=== PATIENT | female | born 1950 | race Caucasian/White ===

== ENCOUNTER → 2018-05-05 | Outpatient (CLI) | payer MEDICARE ==
[~2018-05-05] MED LIST: LIDOCAINE-MPF 2%, 2ML ONE
== END | disposition home or self-care (01) ==
LOC: RAD 08:06
PROVIDERS: ATTEND Internal Medicine Hematology & Oncology
DX: Z45.2 Encounter for adjustment and management of vascular access device (principal); C50.919 Malignant neoplasm of unspecified site of unspecified female breast
CPT/HCPCS: 36569; 76937; 77001; C1751; J3490

== ENCOUNTER → 2018-09-22 | Outpatient (CLI) | payer MEDICARE ==
[~2018-09-22] MED LIST changes: +LIDOCAINE-MPF 1%, 5ML ONE; -LIDOCAINE-MPF 2%, 2ML ONE
== END | disposition home or self-care (01) ==
LOC: RAD 07:54
PROVIDERS: ATTEND Internal Medicine Hematology & Oncology
DX: Z45.2 Encounter for adjustment and management of vascular access device (principal); C50.919 Malignant neoplasm of unspecified site of unspecified female breast
CPT/HCPCS: 36573; C1751; 36569; 76937; 77001

== ENCOUNTER 2018-09-29 14:41 | Inpatient (IN) | payer MEDICARE ==
[~2018-09-29] VITALS: Ht 157.5 cm; Wt 52.2 kg
[2018-09-29] MEDS ORDERED: MORPHINE SULFATE 4 MG/ML, 1ML IVPush PRN (15:00)
[2018-09-29] MEDS ORDERED: SODIUM CHLORIDE FLUSH 10ML SYR IVF ONE (15:00)
[2018-09-29] MEDS ORDERED: ONDANSETRON 2MG/ML, 2ML IVPush ONE (15:00)
[2018-09-29 15:23] LABS: BASOPHILS # (AUTO) 0.01 x10^3/uL (0-0.1); BASOPHILS % (AUTO) 0 % (0-1); EOSINOPHILS # (AUTO) 0.01 x10^3/uL (0-0.4); EOSINOPHILS % (AUTO) 0 % (1-7); LYMPHOCYTES # (AUTO) 2.63 x10^3/uL (1-3.4); LYMPHOCYTES % (AUTO) 22 % (22-44); MD NO; MEAN CORPUSCULAR HEMOGLOBIN 33.3 pg (27.0-34.8); MEAN CORPUSCULAR HGB CONC 34.1 g/dL (32.4-35.8); MEAN CORPUSCULAR VOLUME 97.8 fL (80-100); MEAN PLATELET VOLUME 6.7 fL (7.4-10.4); MONOCYTES # (AUTO) 0.04 x10^3/uL (0.2-0.8); MONOCYTES % (AUTO) 0 % (2-9); NEUTROPHILS # (AUTO) 9.39 x10^3/uL (1.8-6.8); NEUTROPHILS % (AUTO) 78 % (42-75); PLATELET COUNT 126 x10^3/uL (130-400); RED BLOOD COUNT 3.95 x10^6/uL (3.82-5.3); RED CELL DISTRIBUTION WIDTH 16.2 % (9.6-15.2)
--- NOTE | 2018-09-29 15:26 | NUR ---
PT SENT FROM PCP D/T ABNORMAL LAB VALUES. RECENT DIAGNOSES OF BREAST CANCER WITH METS. PT DENIES ANY PAIN OR DISCOMFORT AT THIS TIME. PA AT BEDSIDE EVALUATING. REVERSE ISOLATION IMPLEMENTED.
--- NOTE | 2018-09-29 15:32 | NUR ---
MULTIPLE WARM BLANKETS PROVIDED TO PT.
[2018-09-29 15:33] LABS: ALANINE AMINOTRANSFERASE 226 U/L (12-78); ALBUMIN 2.2 g/dL (3.4-5.0); ANION GAP 11 mmol/L (5-15); CALCIUM 6.8 mg/dL (8.5-10.1); CHLORIDE 93 mmol/L (98-107); CREATININE 1.99 mg/dL (0.55-1.02)
[2018-09-29 15:47] LABS: ALKALINE PHOSPHATASE 1253 U/L (45-117); BILIRUBIN,TOTAL 8.3 mg/dL (0.2-1.0)
[2018-09-29] MEDS ORDERED: MORPHINE SULFATE 4 MG/ML, 1ML ONE (15:50)
[2018-09-29] MEDS ORDERED: ONDANSETRON 2MG/ML, 2ML ONE (15:50)
--- NOTE | 2018-09-29 15:55 | NUR ---
RAD to get Xray, RN in room doing dressing change, EKG, US, commode use first
--- NOTE | 2018-09-29 15:56 | NUR ---
US DELAY DUE TO DRESSING CHANGE/X-RAY/LAB
--- NOTE | 2018-09-29 15:57 | NUR ---
LATE ENTRY: PT CVAD DRESSED AND CHANGED PER [facility] PROTOCOL. TOLERATED WELL. DATED AND TIMED.
--- NOTE | 2018-09-29 15:57 | NUR ---
PT MEDICATION PER EMAR.
[2018-09-29] MEDS ORDERED: HYDR-3240 PO (16:00)
[2018-09-29] MEDS ORDERED: MEGE20TA PO (16:00)
[2018-09-29] MEDS ORDERED: SPIR25TA5 PO (16:00)
[2018-09-29 16:19] LABS: O2 FLOW 2.5 L/min
--- NOTE | 2018-09-29 16:45 | NUR ---
US AT BEDSIDE.
[2018-09-29] MEDS ORDERED: CEFTRIAXONE IVPB ONE (17:00)
[2018-09-29] MEDS ORDERED: CEFTRIAXONE PMX IVPB ONE (17:00)
[2018-09-29] MEDS ORDERED: LACTULOSE 20 GM/30 ML UDC PO ONE (17:00)
[2018-09-29] MEDS ORDERED: CEFTRIAXONE PMX 1GM/50ML 50 ML IVPB ONE (17:00)
--- NOTE | 2018-09-29 17:06 | NUR ---
RN OBTAINED 1/2 BLOOD CULTURES WITH PICC LINE. LAB AT BEDSIDE OBTAINING 2/2 BLOOD CULTURE.
[2018-09-29] MEDS ORDERED: CEFTRIAXONE PMX 1GM/50ML 50 ML ONE (17:11)
--- NOTE | 2018-09-29 17:17 | NUR ---
LAB UNSUCCESSFUL OBTAINING 2/2 BLOOD CULTURES. LAB TO ASK FOR ANOTHER PERSON TO COME DRAW SECOND BLOOD CULTURE.
--- NOTE | 2018-09-29 17:31 | NUR ---
REPORT TO LUÍS RENDON.
--- NOTE | 2018-09-29 17:39 | NUR ---
PT MEDICATED PER EMAR. / BLOOD CULTURES DRAWN. REPORT TO LUÍS RENDON. PT TO BE TRANSPORTED TO ONCOLOGY [facility]IA [facility].
[2018-09-29 17:55] LABS: INTERNATIONAL NORMALIZED RATIO 1.92 (0.93-1.1); PROTHROMBIN TIME 19.8 Seconds (9.6-11.5)
[2018-09-29 19:30] VITALS: BP 108/71
[2018-09-29] MEDS ORDERED: TEMAZEPAM 15 MG CAPSULE PO PRN (20:30)
[2018-09-29] MEDS ORDERED: hydrALAzine 20 MG/ML, 1ML IVPush PRN (20:30)
[2018-09-29] MEDS ORDERED: ONDANSETRON 2MG/ML, 2ML IVPush PRN (20:30)
[2018-09-29] MEDS ORDERED: PHARMACY MAY ADJ FOR RENAL FX MC PRN (20:30)
[2018-09-29] MEDS ORDERED: ACETAMINOPHEN 325 MG TABLET PO PRN (20:30)
[2018-09-29] MEDS ORDERED: LIDODERM 5% PATCH TD PRN (20:30)
[2018-09-29] MEDS: FLUCONAZOLE 200 MG/100 ML 100 ML IV SCH (21:39)
[2018-09-29] MEDS: SODIUM CHLORIDE 0.9% 1,000 ML IV SCH (21:39)
[2018-09-29] MEDS: HEPARIN 5,000 UNITS/ML, 1ML SQ SCH (21:40)
[2018-09-29] MEDS: MEGESTROL ORAL.SUSP 40 MG/ML PO SCH ×2 (22:30→23:25)
[2018-09-29] MEDS: HYDROcodone/APAP 5/325 TABLET PO SCH (22:30)
[2018-09-29] MEDS: maalox/diphenh/lido/sucralfate 5 ML PO PRN (23:20)
[2018-09-30] VITALS (13 sets, daily range): BP systolic 95–141; BP diastolic 50–83
[2018-09-30 04:22] LABS: BASOPHILS % (AUTO) 0 % (0-1); EOSINOPHILS # (AUTO) 0.03 x10^3/uL (0-0.4); EOSINOPHILS % (AUTO) 0 % (1-7); LYMPHOCYTES # (AUTO) 1.78 x10^3/uL (1-3.4); LYMPHOCYTES % (AUTO) 16 % (22-44); MD NO; MEAN CORPUSCULAR HEMOGLOBIN 33.7 pg (27.0-34.8); MEAN CORPUSCULAR VOLUME 96.5 fL (80-100); MEAN PLATELET VOLUME 6.9 fL (7.4-10.4); MONOCYTES # (AUTO) 0.04 x10^3/uL (0.2-0.8); MONOCYTES % (AUTO) 0 % (2-9); NEUTROPHILS # (AUTO) 9.34 x10^3/uL (1.8-6.8); NEUTROPHILS % (AUTO) 83 % (42-75); PLATELET COUNT 111 x10^3/uL (130-400); RED BLOOD COUNT 3.52 x10^6/uL (3.82-5.3); RED CELL DISTRIBUTION WIDTH 16.1 % (9.6-15.2)
[2018-09-30 04:29] LABS: ANION GAP 9 mmol/L (5-15); CALCIUM 6.4 mg/dL (8.5-10.1); CHLORIDE 97 mmol/L (98-107)
[2018-09-30] MEDS: HEPARIN 5,000 UNITS/ML, 1ML SQ SCH ×2 (05:12→13:14)
[2018-09-30] MEDS: maalox/diphenh/lido/sucralfate 5 ML PO PRN ×2 (05:30→21:00)
[2018-09-30 06:12] LABS: CULTURE INDICATED? YES; MICROSCOPIC INDICATED
[2018-09-30] MEDS: LACTULOSE 20 GM/30 ML UDC PO SCH ×2 (09:50→21:00)
[2018-09-30] MEDS: HYDROcodone/APAP 5/325 TABLET PO SCH (10:10)
[2018-09-30] MEDS: SODIUM CHLORIDE 0.9% 1,000 ML IV SCH ×2 (10:19→21:00)
[2018-09-30] MEDS ORDERED: OXYcodone IR 5MG TABLET PO PRN (16:00)
--- NOTE | 2018-09-30 18:03 | NUR ---
KARLIE REYES Fall Risk Medication(s) present and receiving anticoagulants. Signed: 09/30/18 at 1810 by TRISTAN VILLATORO
[2018-09-30] MEDS: CEFTRIAXONE PMX 1GM/50ML 50 ML IV SCH (18:31)
[2018-09-30] MEDS: FLUCONAZOLE 200 MG/100 ML 100 ML IV SCH (20:59)
[2018-09-30] MEDS: MEGESTROL ORAL.SUSP 40 MG/ML PO SCH (21:00)
[2018-10-01 02:00] VITALS: BP 134/82
[2018-10-01] MEDS: HYDROmorphone 2 MG/ML, 1ML IVPush PRN ×2 (04:45→09:50)
[2018-10-01] MEDS: maalox/diphenh/lido/sucralfate 5 ML PO PRN (05:35)
[2018-10-01] MEDS: SODIUM CHLORIDE 0.9% 1,000 ML IV SCH (06:44)
[2018-10-01 08:23] VITALS: BP 128/81
[2018-10-01] MEDS: LACTULOSE 20 GM/30 ML UDC PO SCH ×2 (09:50→20:10)
[2018-10-01 13:43] VITALS: BP 124/79
[2018-10-01] MEDS: CEFTRIAXONE PMX 1GM/50ML 50 ML IV SCH (16:16)
[2018-10-01] MEDS: NYSTATIN 500,000 UNITS/5 ML UDC PO SCH ×2 (16:33→20:10)
[2018-10-01 20:00] VITALS: BP 122/76
[2018-10-01] MEDS: FLUCONAZOLE 200 MG/100 ML 100 ML IV SCH (20:10)
[2018-10-01] MEDS: MEGESTROL ORAL.SUSP 40 MG/ML PO SCH (20:17)
[2018-10-02] MEDS: SODIUM CHLORIDE 0.9% 1,000 ML IV SCH (01:38)
[2018-10-02 01:44] VITALS: BP 128/85
[2018-10-02] MEDS: HYDROmorphone 2 MG/ML, 1ML IVPush PRN ×3 (02:06→10:33)
[2018-10-02 06:40] VITALS: BP 158/80
[2018-10-02] MEDS: NYSTATIN 500,000 UNITS/5 ML UDC PO SCH ×2 (07:38→10:33)
== END 2018-10-02 10:55 | disposition home or self-care (01) | DRG 441 ==
LOC: ED 17:04 → EDIP 17:09 → 3NW 17:22
PROVIDERS: ADMIT Hospitalist; ATTEND Hospitalist
DX: K72.00 Acute and subacute hepatic failure without coma (principal); E43 Unspecified severe protein-calorie malnutrition; N17.0 Acute kidney failure with tubular necrosis; J18.9 Pneumonia, unspecified organism; E87.1 Hypo-osmolality and hyponatremia; B37.0 Candidal stomatitis; C78.7 Secondary malignant neoplasm of liver and intrahepatic bile duct; C79.51 Secondary malignant neoplasm of bone; D68.9 Coagulation defect, unspecified; J90 Pleural effusion, not elsewhere classified; K92.0 Hematemesis; R18.8 Other ascites; Z88.8 Allergy status to other drugs, medicaments and biological substances; Z68.21 Body mass index [BMI] 21.0-21.9, adult; C50.919 Malignant neoplasm of unspecified site of unspecified female breast; D69.6 Thrombocytopenia, unspecified; K59.00 Constipation, unspecified; K82.8 Other specified diseases of gallbladder; R09.02 Hypoxemia; Z66 Do not resuscitate; Z80.3 Family history of malignant neoplasm of breast; Z83.3 Family history of diabetes mellitus
CPT/HCPCS: 36415; 36600; 71045; 74181; 76700; 80048; 80053; 81001; 82140; 82803; 84145; 85025; 85610; 87040; 87086; 96374; 96375; G0378; J0696; J1170; J1644; J2405; J1450; J7030